=== PATIENT | female | born 1985 | race Caucasian/White ===

== ENCOUNTER 2018-12-27 13:36 | Inpatient (IN) | payer BC ==
[2019-01-03] MEDS ORDERED: Ringers Lactate 1,000 ML IV PRN (06:24)
[2019-01-03] MEDS ORDERED: BUTORPHANOL 1 MG/ML INJ IV PRN (06:24)
[2019-01-03] MEDS ORDERED: PROMETHAZINE 25 MG/ML VIAL IV PRN (06:24)
[2019-01-03] MEDS ORDERED: OXYTOCIN/LR 20 UNIT/1,000 ML BAG IV SCH ×2 (07:00→14:00)
[2019-01-03] MEDS ORDERED: Ringers Lactate 1,000 ML IV SCH (07:00)
[2019-01-03 07:09] VITALS: BMI 30.5
[2019-01-03 07:28] LABS: RPR Titer ND
[2019-01-03 07:30] LABS: Absolute Lymphocytes (CBC) 1.4 K/uL (0.7-4.9); Absolute Monocytes 0.5 K/uL (0.1-1.3); Basophils % 0.4 % (0-1.3); Eosinophils % 1.6 % (0-4.4); Hematocrit 39.4 % (36.0-45.0); Lymphocytes % 19.7 % (15.3-44.8); MPV 9.2 fL (7.6-11.3); Monocytes % 6.6 % (3.3-12.3); RBC Red Blood Cell Count 4.23 M/uL (3.86-4.86)
[2019-01-03 07:30] LABS: Urine Appearance CLEAR; Urine Bilirubin NEGATIVE (NEG); Urine Blood 2+ (NEG); Urine Color YELLOW; Urine Glucose NEGATIVE (NEG); Urine Protein NEGATIVE (NEG); Urine Specific Gravity <=1.005 (1.005-1.030); Urine Urobilinogen 0.2 mg/dL (0.2-1.0)
[2019-01-03] MEDS ORDERED: BUPIVACAINE 0.25% PF 10 ML VIAL IV PRN (07:31)
[2019-01-03] MEDS ORDERED: FENTANYL CITR 100 MCG/2 ML IV ONE (07:31)
--- NOTE | 2019-01-03 07:44 | P.PN ---
Date of Service: 01/03/19 No complaints or changes since Thursday. CX one cm, 50%, vtx, ballotable, but at 0 station. AROM by placement of FSE, clear fluid noted. Discussed expected course with pt and , epidural when uncomfortable.
[2019-01-03] MEDS ORDERED: METHYLERGONOVINE 0.2MG/ML AMP IM ONE (07:51)
[2019-01-03 08:06] LABS: Urine Microscopic Reflex ORDER UMIC
[2019-01-03 08:07] LABS: Urine Bacteria <20 /HPF (<20); Urine Culture Reflex Order REFLEXED; Urine RBC 20-50 /HPF (NONE SEEN)
--- NOTE | 2019-01-03 08:41 | PREOPHP ---
Date of Admission: 01/03/2019 History Of Present Illness: Ms. Zambrano is a 33-year-old female, 2, para 1-0 -0-1, who will be admitted on Thursday for induction of labor secondary to term with favorabl e cervix. She has been followed by me during this without complications. has been active. Past Medical History: Please see record. Family History: Please see record. Review of Systems: She reports no recent cough, cold, fever, or chills. No recent nausea or vomiting. She denies any b reast lumps or knots, although she admits to leaking. She denies any urine symptoms, vaginal bleedin g or spotting or bowel issues. Physical Examination: General: female, in no apparent distress. Neck: Supple without adenopathy or thyromegaly. Lungs: Clear. Cardiac: Regular rate and rhythm without murmurs. Breasts: Not examined. Abdomen: Nontender. Estimated weight of 7+ to 8+ pounds. Pelvic: Cervix 50% effaced, vertex presentation, ballotable. Cervix 1 cm dilated. Extremities: Trace to 1+ lower extremity edema. Impression: Term . Plan: The patient will be admitted on Thursday for induction of labor. ÁNGELA/GENESIS Voice ID: [id number]
[2019-01-03] MEDS ORDERED: FENTANYL/BUPIVACAINE/NS/PF 200 MCG/100 ML BAG EP PRN (09:31)
[2019-01-03] MEDS ORDERED: ROPIVACAINE HCL 0 ML IV ONE (09:39)
[2019-01-03] MEDS ORDERED: LIDOCAINE 1% MPF 30 ML VIAL SQ ONE (12:05)
[2019-01-03] MEDS ORDERED: CARBOPROST TROME 250 MCG/ML IM PRN (13:37)
[2019-01-03] MEDS ORDERED: METHYLERGONOVINE 0.2MG/ML AMP IM PRN (13:37)
[2019-01-03] MEDS ORDERED: ONDANSETRON 4 MG (ODT) TAB PO PRN (13:37)
[2019-01-03] MEDS ORDERED: METHYLERGONOVINE 0.2 MG TAB PO PRN (13:37)
[2019-01-03] MEDS ORDERED: hydrOXYzine HCl 25 MG TAB PO ONE (17:08)
[2019-01-03] MEDS: IBUPROFEN 200 MG TAB PO PRN (18:34)
[2019-01-03 21:22] LABS: RPR (Rapid Plasma Reagin) NON-REACT (NON-REACT)
[2019-01-04] MEDS: IBUPROFEN 200 MG TAB PO PRN ×4 (01:05→22:00)
--- NOTE | 2019-01-04 03:12 | DN ---
Date of Procedure: 01/03/2019 Surgeon: Christ Russell MD Milagro is a 33-year-old female, 2, para 1-0-0-1 at approximately 39+ week s gestation, admitted for elective induction of labor secondary to term with favorable cerv ix. She was noted to be 1 cm, 50% effaced on admission, and artificial rupture membranes were perfor med by placement of scalp electrode. Large quantity of clear fluid was noted. She had a first stage of labor of 5 hours and 52 minutes, second stage of labor of 36 minutes. She delivered by spo ntaneous controlled vaginal delivery at 8 pounds 10-ounce male infant, 8 and 9. Infant deliver ed vertex OA. The cord was clamped, cut, and the infant placed on mother's upper abdomen. Cord bloo d was milked toward the and slight delay in cord clamping occurred prior to placement on mothe r's abdomen. Cord blood was obtained. Placenta was spontaneously expelled and appeared to be intact . Intrauterine examination revealed no retained placental fragments. No lacerations were suffered. Estimated total blood loss less than 350 cc. The patient tolerated procedures well, had an epidural catheter placed early and received excellent benefit from this. ÁNGELA/GENESIS Voice ID: [id number] Report ID: [id number]
[2019-01-04] MEDS: ACETAMINOPHEN 500 MG TAB PO PRN ×2 (06:37→14:05)
--- NOTE | 2019-01-04 12:26 | P.PN ---
Date of Service: 01/04/19 S- No complaints, didn't sleep well O-Afeb, vs stable fundus firm, non tender A-Satisfactory P-Routine pp care discussed, likely stay this evening secondary issues.
[2019-01-05] MEDS: ACETAMINOPHEN 500 MG TAB PO PRN (01:05)
[2019-01-05] MEDS: IBUPROFEN 200 MG TAB PO PRN (07:43)
--- NOTE | 2019-01-05 08:34 | DS ---
Final Hospital Discharge Diagnosis: 39 plus week , delivered. Complications: None. Procedures: Artificial rupture of membranes, Pitocin induction of labor, placement of epidural kristen ter, spontaneous controlled vaginal delivery of viable male . Hospital Course: The patient is a 33-year-old female, 2, para 1-0-0-1, at 39 weeks gestation, admitted for elective induction of labor. She had an uneventful labor and delivery of an 8-pound 10-ounce male infant, 9 and 9. She was dismissed on the second day, ambula tory, on a select diet with routine post vaginal delivery activity restrictions. Because of mild hyp oglycemia in the infant and initial small amount of breathing difficulty, she was observed an extra d ay. She was dismissed to be seen back in my office in 1 week. She was dismissed to continue taking her iron and vitamins. Lab work included an admission hemoglobin and hematocrit of 13.1 and 39.4, dismissal 36.5. She had a negative urinalysis, nonreactive RPR. She is Rh positive blood ty pe. She was dismissed to continue taking her iron and vitamins, use ibuprofen for discomfor t, and breast-feeding her . ÁNGELA/GENESIS Voice ID: [id number] Report ID: [id number]
[2019-01-05 09:01] VITALS: BP 122/77; TEMP 97.8
[2019-01-07 03:35] LABS: HBsAG Nonreactive (Nonreactive)
== END 2019-01-05 11:00 | disposition home or self-care (01) | DRG 807 ==
LOC: 2ND-WC 01-03 06:14
PROVIDERS: ADMIT Specialist; ATTEND Specialist
PROC: 10E0XZZ Delivery of Products of Conception, External Approach (ICD-10-PCS; principal; 2019-01-03)
PROC: 10907ZC Drainage of Amniotic Fluid, Therapeutic from Products of Conception, Via Natural or Artificial Opening (ICD-10-PCS; 2019-01-03)
PROC: 3E033VJ Introduction of Other Hormone into Peripheral Vein, Percutaneous Approach (ICD-10-PCS; 2019-01-03)
DX: O80 Encounter for full-term uncomplicated delivery (principal); Z37.0 Single live birth; Z3A.39 39 weeks gestation of pregnancy
CPT/HCPCS: 36415; 81003; 81015; 85014; 85025; 86592; 86901; 87086; 87088; 87340; J2210; J2590; J2795; J3010